=== PATIENT | female | born 1985 | race Hispanic/Latino ===

== ENCOUNTER 2018-11-15 12:01 | Emergency (ER) | payer OTHER ==
[2018-11-15] MEDS ORDERED: Dexamethasone 10 MG/ML VIAL ONE (13:03)
== END 2018-11-15 13:07 | disposition home or self-care (01) ==
LOC: ERS 12:01
DX: J30.9 Allergic rhinitis, unspecified (principal)
CPT/HCPCS: 87081; 87430; 99284; J1100